=== PATIENT | male | born 1945 | race Caucasian/White ===

== ENCOUNTER 2018-02-27 06:32 | Emergency (ER) | payer MEDICARE ==
[~2018-02-27] VITALS: Ht 177.8 cm; Wt 77.3 kg
[2018-02-27 06:33] VITALS: BP 147/90
[2018-02-27 07:19] LABS: BASOPHILS # (AUTO) 0.01 x10^3/uL (0-0.1); BASOPHILS % (AUTO) 0 % (0-1); EOSINOPHILS # (AUTO) 0.01 x10^3/uL (0-0.4); EOSINOPHILS % (AUTO) 0 % (1-7); LYMPHOCYTES # (AUTO) 0.62 x10^3/uL (1-3.4); LYMPHOCYTES % (AUTO) 8 % (22-44); MD NO; MEAN CORPUSCULAR HEMOGLOBIN 28.4 pg (27.5-34.5); MEAN CORPUSCULAR HGB CONC 33.6 g/dL (33.2-36.2); MEAN CORPUSCULAR VOLUME 84.7 fL (81-97); MEAN PLATELET VOLUME 7.2 fL (7.4-10.4); MONOCYTES # (AUTO) 0.32 x10^3/uL (0.2-0.8); MONOCYTES % (AUTO) 4 % (2-9); NEUTROPHILS % (AUTO) 87 % (42-75); PLATELET COUNT 214 x10^3/uL (130-400); RED BLOOD COUNT 5.35 x10^6/uL (4.38-5.82); RED CELL DISTRIBUTION WIDTH 13.5 % (9.4-14.8)
[2018-02-27 07:33] LABS: ALBUMIN 3.7 g/dL (3.4-5.0); ANION GAP 7 mmol/L (5-15); CALCIUM 8.9 mg/dL (8.5-10.1); CHLORIDE 109 mmol/L (98-107); CREATININE 1.27 mg/dL (0.7-1.3)
[2018-02-27 07:37] LABS: TROPONIN I < 0.015 ng/mL (0.000-0.045)
[2018-02-27] MEDS ORDERED: NITROGLYCERIN OINT 2%, 1GM TP ONE (08:00)
[2018-02-27] MEDS ORDERED: IBUPROFEN 200 MG TABLET ONE (08:44)
[2018-02-27] MEDS ORDERED: IBUPROFEN 200 MG TABLET PO ONE (09:00)
== END 2018-02-27 08:58 | disposition home or self-care (01) ==
LOC: ED 08:35
DX: S09.90XA Unspecified injury of head, initial encounter (principal); S19.9XXA Unspecified injury of neck, initial encounter; E86.0 Dehydration; I10 Essential (primary) hypertension; W19.XXXA Unspecified fall, initial encounter; Y93.89 Activity, other specified; Y99.8 Other external cause status; Y92.59 Other trade areas as the place of occurrence of the external cause
CPT/HCPCS: 36415; 70450; 71045; 72125; 80048; 82040; 84484; 85025; 93005; 99285